=== PATIENT | male | born 1990 | race Caucasian/White ===

== ENCOUNTER 2024-04-24 09:52 | Inpatient (IN) | payer BC ==
[~2024-04-24] VITALS: Ht 193 cm; Wt 282.6 kg
[2024-04-24] MEDS ORDERED: ketOROlac 30MG VIAL (30MG/ML) IM ONE (12:30)
[2024-04-24] MEDS ORDERED: Solu-medROL 125MG VIAL IM ONE (12:30)
[2024-04-24] MEDS: ceFAZolin SODIUM 2 GM VIAL IVPB ONE (13:09)
[2024-04-24] MEDS: 0.9%NACL 1000ML 1,000 ML IV ONE (13:18)
[2024-04-24] MEDS: ketOROlac 30MG VIAL (30MG/ML) IVP ONE (13:18)
[2024-04-24] MEDS: Solu-medROL 125MG VIAL IVP ONE (13:18)
[2024-04-24 13:40] LABS: BASOPHILS # (AUTO) 0.02 K/uL (0.00-0.20); BASOPHILS % (AUTO) 0.2 % (0.0-5.0); EOSINOPHILS # (AUTO) 0.02 K/uL (0.00-0.70); EOSINOPHILS % (AUTO) 0.2 % (0.0-8.0); HEMATOCRIT 38.7 % (42-54); IMMATURE GRANULOCYTE ABSOLUTE 0.04 K/uL (0-1); LYMPHOCYTES # (AUTO) 1.5 K/uL (1.0-4.8); LYMPHOCYTES % (AUTO) 12.6 % (21.0-51.0); MEAN CORPUSCULAR HEMOGLOBIN 27.9 pg (27.0-33.0); MEAN CORPUSCULAR HGB CONC 31.3 g/dL (32.0-36.0); MEAN CORPUSCULAR VOLUME 89.4 fL (79-99); MONOCYTES # (AUTO) 0.8 K/uL (0.1-1.0); MONOCYTES % (AUTO) 7.1 % (3.0-13.0); NEUTROPHILS # (AUTO) 9.4 K/uL (1.8-7.7); NEUTROPHILS % (AUTO) 79.6 % (40.0-77.0); PLATELET COUNT (AUTO) 356 K/uL (130-400); RED BLOOD CELL COUNT(AUTO) 4.33 MIL/uL (4.50-6.20); RED CELL DISTRIBUTION WIDTH 14.2 % (11.0-15.5); WHITE BLOOD COUNT (AUTO) 11.8 K/uL (4.8-10.8)
[2024-04-24 13:48] LABS: CREATININE 0.8 mg/dL (0.5-1.3); POTASSIUM 4.7 mmol/L (3.5-5.1)
[2024-04-24 13:52] LABS: ALBUMIN 2.7 g/dL (3.5-5.0); BILIRUBIN,TOTAL 0.5 mg/dL (0.2-1.0); TOTAL PROTEIN, SERUM 7.5 g/dL (6.0-8.3)
[2024-04-24] MEDS ORDERED: MAGNESIUM 2GM PREMIX 50ML 50 ML IV PRN (18:00)
[2024-04-24] MEDS ORDERED: DEXTROSE 50%-WATER 50 ML DISP.SYRIN IV PRN (18:00)
[2024-04-24] MEDS ORDERED: PoTASSium chloRIDE 10MEQ/100ML 100 ML IV PRN (18:00)
[2024-04-24] MEDS ORDERED: PoTASSium chl 10% ELIXIR 20MEQ 20 MEQ/15 ML UDCUP PO PRN (18:00)
[2024-04-24] MEDS ORDERED: GLUCAGON 1MG KIT 1 MG ML IM PRN (18:00)
[2024-04-24] MEDS: FAMOTIDINE 20MG VIAL IV SCH (20:39)
[2024-04-24] MEDS: ZOSYN 3.375GM+NS 50ML 50 ML IV SCH (20:40)
[2024-04-24] MEDS: 0.9%NACL 1000ML 1,000 ML IV SCH (20:40)
[2024-04-24] MEDS: INSULIN humuLIN R 100 UNIT/ML 3ML SQ SCH (20:53)
[2024-04-24] MEDS ORDERED: AZEL23SP2 NS (22:49)
[2024-04-24 23:55] VITALS: BP 146/89; PULSE 89; RESP 18; TEMP 98.7
[2024-04-25] VITALS (7 sets, daily range): BP systolic 117–149; BP diastolic 70–90; PULSE 78–86; RESP 18–20; TEMP 97.5–98.7; O2SAT 98
[2024-04-25] MEDS: acetaMINOPHEN 325 MG TAB PO PRN (00:26)
[2024-04-25] MEDS: DiphenhydrAMINE HCL 25 MG CAPSULE PO ONE (01:31)
[2024-04-25 01:43] LABS: APPEARANCE,URINE CLOUDY (CLEAR); BILIRUBIN,URINE NEGATIVE (NEGATIVE); COLOR,URINE YELLOW (YELLOW); GLUCOSE, URINE (UA) NEGATIVE (NEGATIVE); KETONES,URINE 10 mg/dL (NEGATIVE); LEUKOCYTE ESTERASE ,URINE NEGATIVE Leu/uL (NEGATIVE); NITRATE,URINE NEGATIVE (NEGATIVE); OCCULT BLOOD,URINE NEGATIVE (NEGATIVE); PH,URINE 6.5 (5.0-8.0); PROTEIN,URINE 20 mg/dL (NEGATIVE); UROBILINOGEN,URINE 0.2 mg/dL (0.2-1.0)
[2024-04-25 01:47] LABS: ADD UA MICROSCOPIC YES
[2024-04-25 01:49] LABS: BACTERIA,URINE None Seen /HPF (None Seen)
[2024-04-25 01:50] LABS: MUCUS,URINE Rare LPF (None Seen); SQUAMOUS EPITHELIAL CELL,UR Rare /HPF (0-2)
[2024-04-25 06:18] LABS: BASOPHILS # (AUTO) 0.01 K/uL (0.00-0.20); BASOPHILS % (AUTO) 0.1 % (0.0-5.0); EOSINOPHILS # (AUTO) 0.01 K/uL (0.00-0.70); EOSINOPHILS % (AUTO) 0.1 % (0.0-8.0); HEMATOCRIT 37.7 % (42-54); IMMATURE GRANULOCYTE ABSOLUTE 0.07 K/uL (0-1); LYMPHOCYTES # (AUTO) 1.4 K/uL (1.0-4.8); LYMPHOCYTES % (AUTO) 14.2 % (21.0-51.0); MEAN CORPUSCULAR HEMOGLOBIN 27.3 pg (27.0-33.0); MEAN CORPUSCULAR HGB CONC 30.2 g/dL (32.0-36.0); MEAN CORPUSCULAR VOLUME 90.4 fL (79-99); MONOCYTES # (AUTO) 0.6 K/uL (0.1-1.0); MONOCYTES % (AUTO) 6.2 % (3.0-13.0); NEUTROPHILS # (AUTO) 7.5 K/uL (1.8-7.7); NEUTROPHILS % (AUTO) 78.7 % (40.0-77.0); PLATELET COUNT (AUTO) 382 K/uL (130-400); RED BLOOD CELL COUNT(AUTO) 4.17 MIL/uL (4.50-6.20); RED CELL DISTRIBUTION WIDTH 14.4 % (11.0-15.5); WHITE BLOOD COUNT (AUTO) 9.5 K/uL (4.8-10.8)
[2024-04-25 06:34] LABS: ALBUMIN 2.6 g/dL (3.5-5.0); BILIRUBIN,DIRECT 0.1 mg/dL (0.0-0.3); BILIRUBIN,TOTAL 0.3 mg/dL (0.2-1.0); CREATININE 0.8 mg/dL (0.5-1.3); MAGNESIUM 2.2 mg/dL (1.80-2.40); POTASSIUM 4.1 mmol/L (3.5-5.1); TOTAL PROTEIN, SERUM 7.1 g/dL (6.0-8.3)
[2024-04-25 06:50] LABS: HEMOGLOBIN A1C 6.4 % (4.0-6.0)
[2024-04-25 11:35] LABS: CHOLESTEROL 140 mg/dL (<200); HDL CHOLESTEROL 53 mg/dL (29-71); LDL DIRECT 85 mg/dL (0-99); TRIGLYCERIDES 36 mg/dL (30-200)
[2024-04-25] MEDS ORDERED: ceFEPime HCL 1 GM VIAL IVPB SCH (14:30)
[2024-04-25] MEDS ORDERED: [UNRECOGNIZED DRUG - OTHER] NASAL SCH (15:00)
[2024-04-25] MEDS: LINEZOLID 600 MG/ISO-OSM 300 ML IV SCH (16:31)
[2024-04-25] MEDS ORDERED: ZYVOX 600 MG TAB PO SCH (20:30)
[2024-04-25] MEDS: ceFEPime HCL 1 GM VIAL IVPB SCH (21:17)
[2024-04-25] MEDS: BALSAM PERU/CASTOR OIL 60 GM TUBE TP SCH (21:18)
[2024-04-25] MEDS: NYSTatin 15 GM POWDER TP SCH (21:18)
[2024-04-25] MEDS: ketOROlac 15MG/ML VIAL (15MG/ML) IV PRN (21:18)
[2024-04-26] VITALS (8 sets, daily range): BP systolic 125–146; BP diastolic 62–88; PULSE 79–86; RESP 18–22; TEMP 97.3–98.1; O2SAT 93–100
[2024-04-26] MEDS: ZYVOX 600 MG TAB PO SCH (04:26)
[2024-04-26 04:59] LABS: BASOPHILS # (AUTO) 0.05 K/uL (0.00-0.20); BASOPHILS % (AUTO) 0.5 % (0.0-5.0); EOSINOPHILS # (AUTO) 0.04 K/uL (0.00-0.70); EOSINOPHILS % (AUTO) 0.4 % (0.0-8.0); HEMATOCRIT 36.1 % (42-54); IMMATURE GRANULOCYTE ABSOLUTE 0.04 K/uL (0-1); LYMPHOCYTES # (AUTO) 2.9 K/uL (1.0-4.8); LYMPHOCYTES % (AUTO) 26.9 % (21.0-51.0); MEAN CORPUSCULAR HEMOGLOBIN 28.1 pg (27.0-33.0); MEAN CORPUSCULAR HGB CONC 30.2 g/dL (32.0-36.0); MONOCYTES % (AUTO) 9.2 % (3.0-13.0); NEUTROPHILS # (AUTO) 6.6 K/uL (1.8-7.7); NEUTROPHILS % (AUTO) 62.6 % (40.0-77.0); PLATELET COUNT (AUTO) 333 K/uL (130-400); RED BLOOD CELL COUNT(AUTO) 3.88 MIL/uL (4.50-6.20); RED CELL DISTRIBUTION WIDTH 14.5 % (11.0-15.5); WHITE BLOOD COUNT (AUTO) 10.6 K/uL (4.8-10.8)
[2024-04-26 05:48] LABS: ALBUMIN 2.5 g/dL (3.5-5.0); BILIRUBIN,TOTAL 0.3 mg/dL (0.2-1.0); POTASSIUM 3.6 mmol/L (3.5-5.1); TOTAL PROTEIN, SERUM 6.5 g/dL (6.0-8.3)
[2024-04-26] MEDS: PoTASSium chloRIDE 10MEQ SR 10 MEQ/TAB TAB.SR.24H PO PRN (06:08)
[2024-04-27] VITALS (7 sets, daily range): BP systolic 126–158; BP diastolic 77–90; PULSE 85–89; RESP 16–24; TEMP 97.8–98.5; O2SAT 95
[2024-04-27] MEDS: ondanSETRON 4MG INJ IVP ONE (05:26)
[2024-04-27 05:27] LABS: BASOPHILS # (AUTO) 0.04 K/uL (0.00-0.20); BASOPHILS % (AUTO) 0.4 % (0.0-5.0); EOSINOPHILS # (AUTO) 0.11 K/uL (0.00-0.70); EOSINOPHILS % (AUTO) 1.2 % (0.0-8.0); HEMATOCRIT 33.8 % (42-54); IMMATURE GRANULOCYTE ABSOLUTE 0.03 K/uL (0-1); LYMPHOCYTES # (AUTO) 1.8 K/uL (1.0-4.8); LYMPHOCYTES % (AUTO) 19.5 % (21.0-51.0); MEAN CORPUSCULAR HEMOGLOBIN 27.8 pg (27.0-33.0); MEAN CORPUSCULAR HGB CONC 30.8 g/dL (32.0-36.0); MEAN CORPUSCULAR VOLUME 90.4 fL (79-99); MONOCYTES # (AUTO) 0.9 K/uL (0.1-1.0); MONOCYTES % (AUTO) 9.4 % (3.0-13.0); NEUTROPHILS # (AUTO) 6.4 K/uL (1.8-7.7); NEUTROPHILS % (AUTO) 69.2 % (40.0-77.0); PLATELET COUNT (AUTO) 309 K/uL (130-400); RED BLOOD CELL COUNT(AUTO) 3.74 MIL/uL (4.50-6.20); RED CELL DISTRIBUTION WIDTH 14.3 % (11.0-15.5); WHITE BLOOD COUNT (AUTO) 9.3 K/uL (4.8-10.8)
[2024-04-28] VITALS (7 sets, daily range): BP systolic 132–165; BP diastolic 62–89; PULSE 82–96; RESP 18–19; TEMP 97.9–98.2; O2SAT 90–94
[2024-04-28 05:18] LABS: BASOPHILS # (AUTO) 0.03 K/uL (0.00-0.20); BASOPHILS % (AUTO) 0.3 % (0.0-5.0); EOSINOPHILS # (AUTO) 0.19 K/uL (0.00-0.70); EOSINOPHILS % (AUTO) 1.9 % (0.0-8.0); HEMATOCRIT 40.8 % (42-54); IMMATURE GRANULOCYTE ABSOLUTE 0.07 K/uL (0-1); LYMPHOCYTES # (AUTO) 2.7 K/uL (1.0-4.8); LYMPHOCYTES % (AUTO) 26.8 % (21.0-51.0); MEAN CORPUSCULAR HEMOGLOBIN 27.9 pg (27.0-33.0); MEAN CORPUSCULAR HGB CONC 30.1 g/dL (32.0-36.0); MEAN CORPUSCULAR VOLUME 92.5 fL (79-99); MONOCYTES # (AUTO) 0.8 K/uL (0.1-1.0); MONOCYTES % (AUTO) 8.4 % (3.0-13.0); NEUTROPHILS # (AUTO) 6.2 K/uL (1.8-7.7); NEUTROPHILS % (AUTO) 61.9 % (40.0-77.0); PLATELET COUNT (AUTO) 360 K/uL (130-400); RED BLOOD CELL COUNT(AUTO) 4.41 MIL/uL (4.50-6.20); RED CELL DISTRIBUTION WIDTH 14.3 % (11.0-15.5)
[2024-04-28 05:35] LABS: BILIRUBIN,TOTAL 0.5 mg/dL (0.2-1.0); POTASSIUM 3.8 mmol/L (3.5-5.1); TOTAL PROTEIN, SERUM 7.7 g/dL (6.0-8.3)
[2024-04-28] MEDS: hydrALAZine 20MG/ML VIAL IV PRN (12:05)
[2024-04-28] MEDS: amLODIPine 5 MG TAB PO STA (17:16)
[2024-04-29] VITALS (8 sets, daily range): BP systolic 112–172; BP diastolic 12–73; PULSE 84–106; RESP 14–18; TEMP 97.8–98.8; O2SAT 98
[2024-04-29 05:25] LABS: BASOPHILS # (AUTO) 0.03 K/uL (0.00-0.20); BASOPHILS % (AUTO) 0.3 % (0.0-5.0); EOSINOPHILS # (AUTO) 0.18 K/uL (0.00-0.70); EOSINOPHILS % (AUTO) 1.7 % (0.0-8.0); HEMATOCRIT 37.2 % (42-54); IMMATURE GRANULOCYTE ABSOLUTE 0.05 K/uL (0-1); LYMPHOCYTES # (AUTO) 2.1 K/uL (1.0-4.8); LYMPHOCYTES % (AUTO) 19.8 % (21.0-51.0); MEAN CORPUSCULAR HEMOGLOBIN 27.6 pg (27.0-33.0); MEAN CORPUSCULAR HGB CONC 30.1 g/dL (32.0-36.0); MEAN CORPUSCULAR VOLUME 91.6 fL (79-99); MONOCYTES % (AUTO) 9.5 % (3.0-13.0); NEUTROPHILS # (AUTO) 7.1 K/uL (1.8-7.7); NEUTROPHILS % (AUTO) 68.2 % (40.0-77.0); PLATELET COUNT (AUTO) 350 K/uL (130-400); RED BLOOD CELL COUNT(AUTO) 4.06 MIL/uL (4.50-6.20); RED CELL DISTRIBUTION WIDTH 14.5 % (11.0-15.5); WHITE BLOOD COUNT (AUTO) 10.3 K/uL (4.8-10.8)
[2024-04-29 05:38] LABS: ALBUMIN 2.8 g/dL (3.5-5.0); BILIRUBIN,TOTAL 0.4 mg/dL (0.2-1.0); CREATININE 0.8 mg/dL (0.5-1.3); POTASSIUM 3.9 mmol/L (3.5-5.1)
[2024-04-29] MEDS: amLODIPine 5 MG TAB PO SCH (09:12)
[2024-04-30] VITALS (9 sets, daily range): BP systolic 103–163; BP diastolic 52–86; PULSE 79–97; RESP 18–20; TEMP 97.6–98.4; O2SAT 97
[2024-04-30] MEDS: ketOROlac 15MG/ML VIAL (15MG/ML) IV PRN (03:32)
[2024-04-30 04:58] LABS: ALBUMIN 2.7 g/dL (3.5-5.0); BILIRUBIN,TOTAL 0.5 mg/dL (0.2-1.0); CREATININE 0.8 mg/dL (0.5-1.3); POTASSIUM 3.7 mmol/L (3.5-5.1); TOTAL PROTEIN, SERUM 6.9 g/dL (6.0-8.3)
[2024-04-30] MEDS: LIDOCAINE 4% ADH..PATCH TP SCH (09:21)
[2024-05-01 04:00] VITALS: BP 131/70; PULSE 88; RESP 19; TEMP 97.4
[2024-05-01 08:00] VITALS: BP 125/61; PULSE 87; RESP 19; TEMP 98.7
[2024-05-01 09:20] VITALS: O2SAT 94
[2024-05-01] MEDS: amLODIPine 5 MG TAB PO SCH (10:00)
[2024-05-01 12:50] VITALS: BP 127/80; PULSE 80; RESP 16; TEMP 98.3
[2024-05-01] MEDS ORDERED: fluCONazole 100 MG TAB PO SCH ×2 (14:00→20:00)
[2024-05-01 16:00] VITALS: BP 144/73; PULSE 98; RESP 18; TEMP 98.7
[2024-05-01] MEDS: fluCONazole 100 MG TAB PO SCH (19:14)
[2024-05-01 20:00] VITALS: BP 127/78; PULSE 93; RESP 19; TEMP 97.8; O2SAT 92
[2024-05-02] VITALS (7 sets, daily range): BP systolic 124–146; BP diastolic 62–94; PULSE 48–107; RESP 16–22; TEMP 97.3–98.2; O2SAT 92
[2024-05-02 05:15] LABS: BASOPHILS # (AUTO) 0.03 K/uL (0.00-0.20); BASOPHILS % (AUTO) 0.3 % (0.0-5.0); EOSINOPHILS # (AUTO) 0.19 K/uL (0.00-0.70); EOSINOPHILS % (AUTO) 1.9 % (0.0-8.0); HEMATOCRIT 40.3 % (42-54); IMMATURE GRANULOCYTE ABSOLUTE 0.04 K/uL (0-1); LYMPHOCYTES # (AUTO) 2.2 K/uL (1.0-4.8); LYMPHOCYTES % (AUTO) 22.2 % (21.0-51.0); MEAN CORPUSCULAR HEMOGLOBIN 27.4 pg (27.0-33.0); MEAN CORPUSCULAR HGB CONC 29.8 g/dL (32.0-36.0); MONOCYTES # (AUTO) 1.1 K/uL (0.1-1.0); MONOCYTES % (AUTO) 11.3 % (3.0-13.0); NEUTROPHILS # (AUTO) 6.5 K/uL (1.8-7.7); NEUTROPHILS % (AUTO) 63.9 % (40.0-77.0); PLATELET COUNT (AUTO) 352 K/uL (130-400); RED BLOOD CELL COUNT(AUTO) 4.38 MIL/uL (4.50-6.20); RED CELL DISTRIBUTION WIDTH 14.9 % (11.0-15.5); WHITE BLOOD COUNT (AUTO) 10.1 K/uL (4.8-10.8)
[2024-05-02 05:39] LABS: ALBUMIN 2.8 g/dL (3.5-5.0); BILIRUBIN,TOTAL 0.4 mg/dL (0.2-1.0); CREATININE 0.8 mg/dL (0.5-1.3); POTASSIUM 3.7 mmol/L (3.5-5.1); TOTAL PROTEIN, SERUM 7.1 g/dL (6.0-8.3)
[2024-05-02] MEDS: ondanSETRON 4MG INJ IVP PRN (19:02)
[2024-05-03] VITALS (8 sets, daily range): BP systolic 109–135; BP diastolic 60–77; PULSE 79–90; RESP 19–24; TEMP 97.6–98.3; O2SAT 98
[2024-05-04] VITALS: BP 143/77; PULSE 81; RESP 24; TEMP 98.2
[2024-05-04 04:00] VITALS: BP 127/54; PULSE 84; RESP 22; TEMP 98.2
[2024-05-04 07:53] VITALS: BP 160/78; PULSE 83; RESP 19; TEMP 98.2
[2024-05-04 08:00] VITALS: O2SAT 98
[2024-05-04 11:37] VITALS: BP 120/54; PULSE 80; RESP 19; TEMP 97.9
[2024-05-04] MEDS ORDERED: BALS60OI TP (14:31)
[2024-05-04] MEDS ORDERED: CEFU250T87 PO ×2 (14:31→14:41)
[2024-05-04] MEDS ORDERED: FLUC200T12 PO (14:31)
[2024-05-04] MEDS ORDERED: NYSTPW TP (14:31)
[2024-05-04] MEDS ORDERED: LIDO1ADH71 TP (14:31)
== END 2024-05-04 16:05 | DRG 603 ==
LOC: EDH 09:52 → EDHIP 17:37 → 3CH 23:10
PROVIDERS: ADMIT Hospitalist; ATTEND Hospitalist
DX: L03.116 Cellulitis of left lower limb (principal); E87.1 Hypo-osmolality and hyponatremia; L97.929 Non-pressure chronic ulcer of unspecified part of left lower leg with unspecified severity; Z68.45 Body mass index [BMI] 70 or greater, adult; L97.919 Non-pressure chronic ulcer of unspecified part of right lower leg with unspecified severity; I10 Essential (primary) hypertension; E16.2 Hypoglycemia, unspecified; E66.01 Morbid (severe) obesity due to excess calories; M54.31 Sciatica, right side; B95.61 Methicillin susceptible Staphylococcus aureus infection as the cause of diseases classified elsewhere; L03.115 Cellulitis of right lower limb; B35.1 Tinea unguium; M48.061 Spinal stenosis, lumbar region without neurogenic claudication; J45.909 Unspecified asthma, uncomplicated; L98.429 Non-pressure chronic ulcer of back with unspecified severity; M21.371 Foot drop, right foot; M47.816 Spondylosis without myelopathy or radiculopathy, lumbar region; Z75.1 Person awaiting admission to adequate facility elsewhere; Z79.899 Other long term (current) drug therapy; Z88.8 Allergy status to other drugs, medicaments and biological substances; Z91.011 Allergy to milk products; Z60.2 Problems related to living alone; W01.0XXA Fall on same level from slipping, tripping and stumbling without subsequent striking against object, initial encounter; Y93.89 Activity, other specified; Y92.89 Other specified places as the place of occurrence of the external cause; Y99.8 Other external cause status
CPT/HCPCS: 36415; 72131; 73560; 73600; 80048; 80053; 80061; 80076; 81001; 82306; 82550; 82948; 83036; 83605; 83735; 83880; 84145; 85025; 87070; 87076; 87086; 87186; 93970; 96365; 96375; A6248; G0378; J0360; J0692; J1885; J2020; J2405; J2543; J2919; J3490; J7030; Q0163; J0690